=== PATIENT | male | born 1985 | race Caucasian/White ===

== ENCOUNTER 2020-05-23 18:03 | Emergency (ER) | payer SELFPAY ==
[2020-05-23 18:04] VITALS: BP 142/86; PULSE 133; RESP 18; TEMP 37.3; O2SAT 97; BMI 25.1
[2020-05-23 18:24] VITALS: BP 142/86; PULSE 133; RESP 18; TEMP 37.3; O2SAT 97
--- NOTE | 2020-05-23 18:28 | CT_ITS ---
STUDY: CT SOFT TISSUE NECK WITH CONTRAST REASON FOR EXAM: Male, 34 years old. Facial abscess RADIATION DOSAGE (If Supplied By Facility): CTDIvol = ( 16.34 ) mGy, DLP = ( 432.60 ) mGycm TECHNIQUE: The patient was scanned in a multi-detector CT scanner. High resolution transaxial imaging was performed following intravenous administration of IV 75mL [id number]-370. Sagittal and coronal images were reconstructed. Individualized dose optimization techniques were used for this CT. COMPARISON: None. FINDINGS: There is substantial soft tissue swelling of the chin and primarily in the left side of the face in the lower maxillary and mandibular region. There is not a well-defined abscess; however there is a vaguely outlined hypodense region which may be developing an enhancing rim measuring about 1.5 cm at the mandibular level. There are multiple shotty enhancing submandibular lymph nodes more numerous on the left and mental enhancing lymph nodes. Shotty enhancing and nonenhancing jugular lymph nodes primarily on the left. There is a periapical lucency of the right mandibular second premolar with a large carious erosion of its crown. There is no definite abruption through the medial malleolus. A normal foramen passes nearby. Normal bilateral parotid glands. Normal bilateral manager of investigations spaces. Normal bilateral parapharyngeal spaces. Normal bilateral sublingual and submandibular glands and spaces. Normal visualized nasopharynx. Normal retropharyngeal space. Normal perivertebral space. Prominent but symmetric tonsils. The visualized tongue, tongue base and oropharynx are normal. Normal epiglottis, bilateral vallecula and hypopharynx. The pre-epiglottic and paraglottic adipose spaces are normal. Normal visualized bilateral piriform sinuses, aryepiglottic folds, vocal cords, and arytenoid-cricoid articulations. Normal subglottic trachea. Normal bilateral lobes of the thyroid gland. Normal visualized pulmonary apices. Normal visualized paranasal sinuses. Mild degenerative changes of the cervical spine. CT/Soft Tissue Neck WITH Contrast IMPRESSION: Substantial soft tissue swelling around the chin and left side of the face in the lower maxillary and mandibular region. There is a not well defined hypodense region which is possibly developing an enhancing early abscess cavity within the area of edema at mandibular level. This is approximately 1.5 cm in size noting it is not well demarcated. There is a periapical lucency of the right mandibular second molar which also has a large erosion of the crown. This may or may not be related to the involving facial abscess. There is no obvious erosion of the alveolus. Shotty enhancing/reactive submandibular lymph nodes, left greater than right and shotty mental and left jugular lymph nodes. Prominent but symmetric tonsils. Mild degenerative changes of the cervical spine. Electronically Signed: Roya Lane MD at 20:27 EDT , Service support ,
--- NOTE | 2020-05-23 18:43 | ED.VISSUMM ---
- ER Visit Summary Date of Service: 05/23/20 Chief Complaint: Cellulitis History of Present Illness: The patient is a 34 M who presents with cellulitis to his jaw that is been getting worse over the past 3 days. Patient states he noticed a pimple over his chin 3 days ago. Patient states he attempted to pop it. Patient states that it has gotten progressively worse with increased swelling. Patient denies any discharge or drainage. Patient describes his pain as stabbing and throbbing. Patient states it has been improving with ice and aspirin. Patient denies any difficulty breathing or difficulty swallowing. Patient denies any fevers or chills. Physical Examination: Vital signs are stable except for a tachycardia of 133. Patient is afebrile. Patient is in no acute distress. Oral mucosa is pink and moist. Oropharynx is clear. Airway is patent. Skin is warm and dry. There is an abscess over the anterior chin just to the left of midline. There is some mild fluctuance. There is no active discharge or drainage noted. There is no sublingual edema. Neck is supple. Trachea is midline. There is no JVD. Heart was regular and tachycardic. Lungs are clear and equal bilateral. Abdomen is soft and nontender. Cranial nerves II through XII are intact. There are no focal motor or sensory deficits. Test Results: CBC shows a leukocytosis of 17.1. Comprehensive metabolic profile was within normal limits. CT scan of the soft tissue neck was obtained. There is a small abscess measuring approximate 1.5 cm on the chin. There is no evidence of Shyam's angina. There is some submandibular lymphadenopathy. This was interpreted by the radiologist and reviewed by myself. Emergency Department Course and Treatment: The area was cleaned with chlorhexidine prep. The area was anesthetized with 1% plain lidocaine locally. A small cruciate incision was made using an 11 blade scalpel. A moderate amount of purulent drainage was expressed. The wound was left open. Bacitracin dressing was applied. Patient tolerated the procedure well. Patient was instructed to use warm compresses. Patient was instructed to follow-up with her primary care physician in 5 to 7 days. Patient understood and was agreeable with the plan. All questions were answered. Patient was given a dose of clindamycin here. Patient was given a prescription for clindamycin. Patient was instructed to follow-up with a primary care physician in 5 to 7 days. Patient was also given a referral for oral surgery. Disposition: Discharge home Impression: 1. Chin abscess This note was generated with [employer] dictation software. It may contain incorrect words, spelling, and punctuation that were not noted in review of the chart prior to signing ED Disposition - Plan for ED Patient: Disposition: Home or Assisted Living Diagnosis: Abscess of chin Instructions: ED Abscess Incision And Drainage Prescriptions: Clindamycin HCl [Cleocin] 300 mg PO Q6H #40 capsule Transmission Status: Received by [id number] Referrals: Norris Espinal MD [Primary Care Provider] - 3-5 Days Eder Puentes DDS [STAFF PHYSICIAN] - 3-5 Days
[2020-05-23] MEDS: Ketorolac 30 MG/ML Syringe IV (18:52)
[2020-05-23 19:00] LABS: Absolute Neutrophil Count 13.9 X10^3/uL (2.0-7.7); Basophil# 0.05 X10^3/uL; Basophil% 0.3 % (0-1); Eosinophil# 0.15 X10^3/uL; Eosinophils% 0.9 % (0-5); Hematocrit 42.5 % (40-54); Lymphocyte % 8.7 % (19-41); Mean Corp Hgb Conc 32.9 g/dL (32-36); Mean Corpuscular Volume 91.2 fL (80-94); Mean Platelet Vol. 10.2 fl (6.2-12.0); Monocyte# 1.52 X10^3/uL; Monocyte% 8.8 % (0-10); NRBC Flagged by Analyzer 0 % (0-5); Neutrophil % 80.6 % (47-70); POSITIVE DIFFERENTIAL YES; Platelet Count 318 K/mm3 (150-450); RBC Distribution Width SD 43.7 fl (35.1-43.9); Red Blood Count 4.66 M/mm3 (4.6-6.2); White Blood Count 17.2 K/mm3 (4.4-11.0)
[2020-05-23 19:01] LABS: Differential Indicated SCAN CRITERIA MET
[2020-05-23 19:05] VITALS: BP 150/84; PULSE 114; RESP 15; TEMP 37.3; O2SAT 97
[2020-05-23 19:22] LABS: Differential Comment SCANNED
[2020-05-23 19:31] LABS: ALB/GLOB Ratio 0.6 RATIO (0.9-2.4); AST(SGOT) 25 U/L (15-37); Alanine Aminotransfer ALT/SGPT 20 U/L (16-61); Albumin, Serum 3.1 g/dL (3.2-5.0); Alkaline Phosphatase 97 U/L (45-117); Anion Gap 3 (5-15); BUN 7 mg/dL (7-18); BUN/Creat Ratio 7.8 RATIO (10-20); Calcium,Total 8.6 mg/dL (8.5-10.1); Chloride 102 mmol/L (98-107); EST Glomerular Filtration Rate 104 mL/min (>60); Est Glom Filt Rate - Afr Amer 125 mL/min (>60); Globulin 5.1 g/dL (2.2-4.2); Glucose 105 mg/dL (74-106); Potassium 4.1 mmol/L (3.5-5.1); Protein, Total 8.2 g/dL (6.4-8.2); Sodium Level 135 mmol/L (136-145)
[2020-05-23 19:36] VITALS: BP 150/84; PULSE 114; RESP 15; TEMP 37.3; O2SAT 97
[2020-05-23] MEDS: Lidocaine 1% (20 ml mdv) 20 ML Vial INFILT (20:00)
[2020-05-23 20:38] VITALS: BP 139/55; PULSE 110; RESP 20; O2SAT 100
[2020-05-23 21:12] VITALS: BP 154/92; PULSE 116; RESP 15; TEMP 37.2; O2SAT 99
[2020-05-26 14:24] LABS: Pathologist Review Reviewed
== END 2020-05-23 21:23 | disposition home or self-care (01) ==
PROVIDERS: Emergency Provider Emergency Medicine; PCP Family Medicine
DX: L02.01 Cutaneous abscess of face (principal); F12.90 Cannabis use, unspecified, uncomplicated
CPT/HCPCS: 36415; 70491; 80053; 85025; 87040; 96361; 96374; 96375; 99283; J7030; Q9967; A4216

== ENCOUNTER 2020-11-10 19:08 | Emergency (ER) | payer SELFPAY ==
[2020-11-10 19:09] VITALS: BP 132/82; PULSE 119; RESP 20; TEMP 37.1; O2SAT 96; BMI 24.4
[2020-11-10 21:30] VITALS: BP 124/77; PULSE 98; RESP 16; TEMP 37.1; O2SAT 100
[2020-11-10] MEDS: Smz/Tmp Ds Tablet 1 TABLET PO (21:51)
[2020-11-10] MEDS: Cephalexin 250 MG Capsule 500 MG PO (21:51)
[2020-11-10] MEDS: Lidocaine 1% (20 ml mdv) 20 ML Vial INFILT (21:51)
--- NOTE | 2020-11-10 21:51 | EX.ED.DYSGE1 ---
HPI History of Present Illness Chief Complaint: Abscess Informant: patient Onset/Context/Timing Onset: Days Context: Gradual Onset Timing: Continuous Quality: Abscess right and left forearm Location: Dorsal surface of the right left forearm mid third x1 right hand x2 left Current Severity: Moderate Maximum Severity: Moderate Worsened by: Nothing Relieved by: Nothing Associated Symptoms Associated Symptoms: Chills yesterday Narrative Narrative: Patient is a 35-year-old male who presents with abscesses that required drainage. Had prior abscesses. He denies rhinorrhea, congestion postnasal drainage. Denies headache, photophobia, neck pain or neck stiffness. He does report mild discomfort with breathing. He denies cough or shortness of breath. He denies leg pain, swelling discoloration. He denies nausea, vomiting diarrhea. He denies dysuria, frequency, urgency or hematuria. He denies history of medic fever, heart murmur, mitral prolapse or being immune suppressed. He denies drug use. Prior similar symptoms: Yes Recent Illness/Hospitalization: No PFSH PFSH Medical History Abscess Former smoker Home Medications aspirin 325 mg PO PRN PRN 05/23/20 [History Last Taken Unknown] clindamycin HCl 300 mg PO Q6H #40 capsule 05/23/20 [Rx Last Taken Unknown] cephalexin 500 mg PO Q6 #28 capsule 11/11/20 [Rx Last Taken Unknown] hydrocodone-acetaminophen 1 tab PO Q6H PRN PRN 3 Days #10 tablet 11/11/20 [Rx Last Taken Unknown] sulfamethoxazole-trimethoprim 1 tab PO BID #14 tablet 11/11/20 [Rx Last Taken Unknown] Allergy/AdvReac Type Severity Reaction Status Date / Time Penicillins AdvReac Other Verified 11/10/20 19:08 Social History (Updated 11/10/20 @ 21:[address] 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 Smoking Status: Current some day smoker tobacco type: e-cigarettes alcohol intake: current alcohol intake frequency: other substance use type: does not use ROS ROS ED Constitutional Constitutional ED: Reports chills; Denies fever(s), subjective, sweats or weight loss Eyes Eyes: Denies blurry vision or diplopia ENT ENT ED: Denies ear pain, rhinorrhea or sore throat Cardiovascular Cardiovascular: Reports chest pain; Denies orthopnea, palpitations or paroxysmal nocturnal dyspnea Respiratory/Chest Respiratory/Chest: Denies cough, dyspnea, dyspnea on exertion, orthopnea or paroxysmal nocturnal dyspnea Gastrointestinal Gastrointestinal: Denies abdominal pain, diarrhea, nausea or vomiting Genitourinary Genitourinary ED: Denies dysuria, hematuria or urinary frequency Musculoskeletal Musculoskeletal: Denies arthralgias, back pain, myalgias or neck pain Integumentary Reports abscess and rash; Denies Abrasions Neurologic Neurologic: Denies headache(s) or weakness Endocrine Endocrinology: Denies polydipsia, polyphagia or polyuria EXAM Physical Exam Const Vital Signs: 11/10/20 19:09 11/10/20 21:30 Temperature 98.7 F 98.8 F Temperature Source Temporal Oral Pulse Rate 119 H 98 Respiratory Rate 20 H 16 Blood Pressure 132/82 H 124/77 H Blood Pressure Mean 98 92 Pulse Ox 96 100 Oxygen Delivery Method Room Air Room Air Positive well nourished and well developed General Appearance ED: well developed and NAD HEENT Reports TM's clear and moist mucous membranes HEENT Narrative: Head is atraumatic normocephalic. Pupils equal round reactive. Tympanic Membrane ED: Yes TM's clear Eyes PERRL and EOMs intact bilaterally General Eye ED: Negative for pale conjunctiva or scleral icterus Neck no lymphadenopathy, supple and no JVD Chest Wall inspection of chest normal and palpation of chest normal Resp normal respiratory effort and clear to auscultation bilaterally Effort and Inspection: Negative for pain with movement Cardio regular rate, regular rhythm, S1 normal heart sound, S2 normal heart sound and no murmurs GI normal to inspection, nondistended, normoactive bowel sounds and non-tender Palpation: soft Back/Spine no CVA tenderness Extremity Negative for normal to inspection Extremity Narrative: 1 subcutaneous abscess right forearm and 2 subcutaneous abscesses left forearm General Extremety ED: Yes tenderness; Negative for edema General Extremity: Negative for edema Neuro oriented x3, CN's II-XII intact bilaterally and no sensory deficits noted Sensorium / Orientation: alert Motor Exam: strength 5/5 throughout Psych mental status grossly normal Skin no rashes or lesions noted and no wounds MDM MDM MDM Narrative Medical decision making narrative: Patient has subcutaneous abscesses which will require I&D. There appears to be surrounding cellulitis. Since he reported chills will treat with Bactrim and cephalexin. His allergy to penicillin is unknown per EMR. When asked if he had allergies patient denied. Procedures Other Procedures Procedure(s): And left forearm abscess Patient was explained why ID had to be performed. 1. I&D of abscess right forearm and abscess left forearm 2. Patient was given opportunity ask questions. He had not asked. Timeout was performed at 03/12/1953. Patient did give consent. Area was anesthetized by local infiltration and field block. The right forearm abscess was incised with a 10 blade. Approximately 7 mm incision was made. Minimal purulent material. Blunt dissection was undertaken. Cavity was irrigated. Wick was placed. There is still some surrounding cellulitis. The abscess on the left forearm is much larger. There is approximately 10 cc of purulent material. Blunt dissection was obtained and there is communication with an area that is opened that is on the ulnar side of the abscess was incised. Cavity was irrigated. Wick was placed. Patient was treated with antibiotics. He received his first dose in the emergency department. Discharge Plan Triage Chief Complaint: Abscess ED Provider: Heriberto Flores Dx/Rx/DC Orders Clinical Impression: Cellulitis and abscess of upper arm and forearm Instructions: ED Abscess Incision And Drainage, ED Cellulitis Prescriptions: New hydrocodone-acetaminophen [hydrocodone-acetaminophen] 1 TABLET tablet 1 tab PO Q6H PRN PRN (Reason: Pain) 3 Days Qty: 10 RF: 0 cephalexin [cephalexin] 500 MG capsule 500 mg PO Q6 Qty: 28 RF: 0 sulfamethoxazole-trimethoprim [sulfamethoxazole-trimethoprim] 1 TABLET tablet 1 tab PO BID Qty: 14 RF: 0 No Action aspirin 325 MG tablet 325 mg PO PRN PRN (Reason: Pain Score 1-10) RF: 0 clindamycin HCl 300 MG capsule 300 mg PO Q6H Qty: 40 RF: 0 Referrals: Valeri Dumont [NON-STAFF] - 2 Days for wound check Activity Restrictions/Additional Instructions: 1. Keep wounds clean and dry for the next 24 hours. 2. Take medication as prescribed for infection and pain Disposition Disposition: Home, Self Care
[2020-11-11] MEDS: HYDROcodone Bitartrate/Apap 5/325 Tablet PO (00:33)
[2020-11-11 00:36] VITALS: BP 120/72; PULSE 75; RESP 16
== END 2020-11-11 00:37 | disposition home or self-care (01) ==
PROVIDERS: Emergency Provider Emergency Medicine
DX: L03.114 Cellulitis of left upper limb (principal); L03.113 Cellulitis of right upper limb; L02.413 Cutaneous abscess of right upper limb; L02.414 Cutaneous abscess of left upper limb; F17.210 Nicotine dependence, cigarettes, uncomplicated
CPT/HCPCS: 10060; 87426; 99282; A4216

== ENCOUNTER 2023-03-17 23:11 | Emergency (ER) | payer SELFPAY ==
[2023-03-17 23:12] VITALS: BP 138/92; PULSE 97; RESP 18; TEMP 37; O2SAT 98; BMI 29.5
--- OUTSIDE RECORDS SUMMARY | 2023-03-17 23:42 | XMS RPT_ITS | CCD ---
Author Name Unknown Address [address] [place] [address] Organization [facility] Results Test Name Value Interpretation Reference Range Facil ity Progress note 05-22-2020 Note Date & Type Note Facility 05-22-2020 Note HNO ID: [id number] Author: Daljit Roberts) Workman Service: ? Author Type: Nurse Practitioner Type: Progress Notes Filed: 05/22/2020 12:08 PM Note Text: Patient triaged on office today Significant infected abscess on left lower chin accompanied with facial swelling in the left jaw. Difficulty closing mouth and talking Denies having a fever, chills, or difficulty breathing/ swallowing. Instructed him to go to ER for further treatment and possible IV antibiotics Patient will drive himself to ER, refused medical transport. [facility] Summary Purpose Family History No Family History Records Found Advance Directives No Advanced Directives Records Found Additional Source Comments (unrecognized sect ion and content) No Status Records Found INFORMATION SOURCE (unrecogn ized section and content) FOR RECORDS PERTAINING TO PATIENTS WHO ARE OR HAVE BEEN ENROLLED IN A CHEMICAL DEPENDENCY/SUBSTANCEABUSE PROGRAM, SOME INFORMATION MAY BE OMITTED. This clinical summary was aggregated from multiple sources. Caution should be exercised in using it in the provision of clinical care. This summary normalizes information from multiple sources, and as a consequence, information in this document may materially change the coding, format and clinical context of patient data. In addition, data may be omitted in some cases. CLINICAL DECISIONS SHOULD BE BASED ON THE PRIMARY CLINICAL RECORDS. [employer] provides no warranty or guarantee of the accuracy or completeness of information in this document.
[2023-03-17] MEDS: Clindamycin HCl 150 MG Capsule 300 MG PO (23:48)
--- NOTE | 2023-03-18 02:31 | EX.ED.DYSGE1 ---
HPI History of Present Illness Chief Complaint: Cellulitis Informant: patient Narrative Narrative: Patient is a 37-year-old male who reports previous facial abscess/cellulitis. 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 He denies any fevers or chills difficulty breathing or swelling but states last time he had this he had an infection that required antibiotics and therefore comes in for evaluation [facility] Medical History Abscess Former smoker Home Medications NK 03/17/23 [History Last Taken Unknown] clindamycin HCl 300 mg capsule 300 mg PO 4X/DAY 10 days #40 caps 03/18/23 [Rx Last Taken Unknown] oxycodone-acetaminophen 5 mg-325 mg tablet (Percocet) 1 tab PO Q6H PRN pain 3 days #12 tabs 03/18/23 [Rx Last Taken Unknown] Allergy/AdvReac Type Severity Reaction Status Date / Time Penicillins AdvReac Other Verified 03/17/23 23:12 Social History (Updated 11/10/20 @ 21:[address] 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 Smoking Status: Current some day smoker tobacco type: e-cigarettes alcohol intake: current alcohol intake frequency: other substance use type: does not use ROS ROS ED Constitutional Constitutional ED: Denies chills or fever(s) ENT ENT ED: Denies sore throat Cardiovascular Cardiovascular: Denies chest pain Respiratory/Chest Respiratory/Chest: Denies cough or dyspnea Gastrointestinal Gastrointestinal: Denies abdominal pain, diarrhea, nausea or vomiting Genitourinary Genitourinary ED: Denies dysuria Musculoskeletal Musculoskeletal: Denies myalgias Integumentary Reports abscess Neurologic Neurologic: Denies headache(s) Hematologic/Lymphatic Hematologic/Lymphatic: Denies easy bleeding or easy bruising EXAM Physical Exam Const Vital Signs: 03/17/23 23:12 03/18/23 02:53 Temperature 98.6 F Temperature Source Temporal Pulse Rate 97 93 Respiratory Rate 18 16 Blood Pressure 138/92 H Blood Pressure Mean 107 Pulse Ox 98 97 Oxygen Delivery Method Room Air Positive well nourished and well developed General Appearance ED: well developed HEENT HEENT Narrative: Along the left side of the face near the left lateral cheek and ear is a 3 x 3 area of erythema and warmth consistent with cellulitis with approximately 1 x 1.5 cm area of induration in the center concerning for abscess. No active discharge noted. No lymphangitic streaking Patient has no oral lesions no tongue or lip swelling no airway edema or compromise Eyes PERRL and EOMs intact bilaterally Neck supple Neck Narrative: No nuchal rigidity or meningeal signs noted Resp normal respiratory effort and clear to auscultation bilaterally Cardio regular rate and regular rhythm Extremity normal to inspection Neuro oriented x3, CN's II-XII intact bilaterally and no sensory deficits noted Sensorium / Orientation: alert Motor Exam: strength 5/5 throughout Psych mental status grossly normal Skin Skin Narrative: Soft tissue changes of the left face as documented above MDM MDM MDM Narrative Medical decision making narrative: Patient presented to the ER hypertensive otherwise with stable vitals. He denies any history of immunosuppression and has erythema and induration to the left side of his face with no reported trauma. Differential diagnosis is for cellulitis versus abscess. By exam he is a combination of both as there is induration in the center of the erythema. At this time he is afebrile he is actually hypertensive not hypohas no history of immunosuppression is not having difficulty breathing or swallowing and there were no signs of systemic infection so do not feel there is need for imaging or laboratory studies. Patient had the area incised and drained as document below and following this to be starting antibiotics secondary to the cellulitis and persistent infection but as he does not have signs of systemic infection is otherwise safe for discharge. Patient had the left side of his face cleaned with chlorhexidine. The area was anesthetized using 8 mL of 1% lidocaine with epinephrine and local fashion. A #11 blade was used to make a 1 cm incision over top the area of induration. A mild amount of purulent material was expressed. Loculations were dissected with a needle baron. The area was copiously irrigated with normal saline. Patient tolerated the procedure well without complication. History & Record Review Discussion w/independent historian: Patient Discharge Plan Triage Chief Complaint: Cellulitis ED Provider: Andi Rico Dx/Rx/DC Orders Clinical Impression: Cellulitis and abscess of face Instructions: ED Abscess Incision And Drainage, ED Cellulitis, Facial Prescriptions: New clindamycin HCl 300 mg capsule 300 mg PO 4X/DAY 10 Days Qty: 40 0RF oxycodone-acetaminophen [Percocet] 5-325 mg tablet 1 tab PO Q6H PRN (Reason: pain) 3 Days Qty: 12 0RF No Action NK Primary Care Provider: Care Physician,No Primary Referrals: Justo Elias MD [Med Staff - Active Staff] - Care Physician,No Primary [Primary Care Provider] - Activity Restrictions/Additional Instructions: Please clean the area with soap and water and use warm compresses to help draw out any remaining infection. Take the antibiotic as directed to resolve the infection but if you develop a fever over 100.4 develop worsening swelling or have any further concerns please return for repeat evaluation Disposition Disposition: Home, Self Care Discharge Date/Time: 03/18/23 02:53
[2023-03-18] MEDS: Oxycodone/Apap 5/325 Tablet PO (02:51)
[2023-03-18 02:53] VITALS: PULSE 93; RESP 16; O2SAT 97
== END 2023-03-18 02:53 | disposition home or self-care (01) ==
PROVIDERS: Emergency Provider Emergency Medicine; Visit Provider Emergency Medicine
DX: L02.01 Cutaneous abscess of face (principal); L03.211 Cellulitis of face; F17.290 Nicotine dependence, other tobacco product, uncomplicated
CPT/HCPCS: 10060; 99283